=== PATIENT | female | born 2000 | race Caucasian/White ===

== ENCOUNTER 2019-11-18 20:15 | Emergency (ER) | payer OTHER ==
[~2019-11-18] VITALS: Ht 154.9 cm; Wt 45.4 kg
[2019-11-18] MEDS ORDERED: [UNRECOGNIZED DRUG - OTHER] (20:45)
[2019-11-18] MEDS ORDERED: ORPHENADRINE C100 MG PO (23:00)
[2019-11-18] MEDS ORDERED: DICLOFENAC SODI75 MG PO (23:00)
== END 2019-11-18 23:20 | disposition home or self-care (01) ==
LOC: ER 20:15
DX: M54.2 Cervicalgia (principal)

== ENCOUNTER 2020-01-05 10:38 | Emergency (ER) | payer OTHER ==
[~2020-01-05] VITALS: Ht 157.5 cm; Wt 55.3 kg
[~2020-01-05 10:38] MED LIST: DICLOFENAC SODI75 MG PO; ORPHENADRINE C100 MG PO; [UNRECOGNIZED DRUG - OTHER]
[2020-01-05] MEDS ORDERED: ZITHROMAX500 MG PO (13:09)
== END 2020-01-05 13:32 | disposition home or self-care (01) ==
LOC: ER 10:38
DX: N92.1 Excessive and frequent menstruation with irregular cycle (principal); B96.0 Mycoplasma pneumoniae [M. pneumoniae] as the cause of diseases classified elsewhere